=== PATIENT | female | born 1945 | race Caucasian/White ===

== ENCOUNTER 2016-09-17 06:46 | Day surgery (SDC) | payer MEDICARE, OTHER ==
[~2016-09-17] VITALS: Ht 165.1 cm; Wt 52.2 kg
[2016-09-17] VITALS (7 sets, daily range): BP systolic 119–159; BP diastolic 43–58; PULSE 52–63; RESP 13–17; O2SAT 100
[~2016-09-17 06:46] MED LIST: ACET325T51 PO; CeFAZolin 2 Gm/50 mL D5W IV Premix IV ONE
[2016-09-17] MEDS ORDERED: Propofol 10,000 mCg/mL 20 mL Inj ONE (06:47)
[2016-09-17] MEDS ORDERED: Ondansetron 2 mg/mL 2 mL Inj ONE (06:47)
[2016-09-17] MEDS ORDERED: Dexamethasone 4 mg/mL Inj ONE (06:47)
[2016-09-17] MEDS ORDERED: fentaNYL-PF 50 mCg/mL 2 mL Inj ONE (06:47)
[2016-09-17] MEDS: Lactated Ringer's 1,000 ML IV SCH ×3 (07:22→10:01)
[2016-09-17] MEDS ORDERED: Lactated Ringer's 1,000 ML IV SCH (08:36)
[2016-09-17] MEDS ORDERED: Lactated Ringer's 500 ML IV PRN (08:36)
--- NOTE | 2016-09-17 08:36 | PCM.HPANE ---
Patient Data Surgeon Admitting Provider: Attending Provider:Vignesh Mcdonald MD Primary Care Physician:Billy Other Provider: Reason for Visit Pancreatic Cancer Ht/WT & BMI Height (Feet): 5 Height (Inches): 5 Weight (Kilograms): 52.2 Body Mass Index 19.00 Allergies Coded Allergies: No Known Allergies (Unverified , 09/03/16) Past Anesthesia History Anesthesia History: Denies:: Abnormal Airway, Anesthesia Reactions, Difficult Intubation, Fam Anesthesia Reaction Diabetes History Hx Diabetes?: No MRSA MRSA: No Medications Hypertension Medication: No Home Meds Incl Beta Hakan: No Reported Medications Acetaminophen 325 Mg [id number] Mg PO Q4H PRN For Pain Ref 0 09/15/16 History History of ENT Problems?: No HEENT History: Denies:: Abnormal Airway Cataracts Difficult Intubation Dysphagia Glaucoma Hearing Problem Sinus Problem TMJ Denture Type: Full- Upper Hx of Heart Problems?: Yes Cardiovascular History: Positive for:: Heart Murmur (slight murmur since childhood) Hypertension (No longer on meds) Denies:: AICD Pacemaker Peripheral Vascular Hx of Respiratory Problem?: No Respiratory History: Denies:: Asthma COPD Emphysema Oxygen Administration Pneumonia Tuberculosis Use of C-PAP Machine Use of Inhalers / NEBS Hx Neurologic Problems?: No Neurological History: Denies:: Alzheimer's Disease CVA Dizziness Headaches Multiple Sclerosis Parkinson's Disease Seizures Hx of GI Problems?: Yes Gastrointestinal History: Denies:: Gastroesphageal Reflux Heartburn Liver Disease Other GI Pertinent History: pancreatic cancer current admission problem, pt has had EUS/ERCP Aug 2016 at with pancreatic duct stent placed. Ca has been determined to be unresectable Hx of Problems?: No Genitourinary History: Denies:: Kidney Stones Urinary Tract Infection Female Hx: Denies:: Currently (hysterectomy) Problems with Breasts? Skin History: Denies:: History Skin Disorders? Pressure Ulcers Hx Musculoskeletal Problems?: No Musculoskeletal History: Denies:: Back Injury Degenerative Joint Fibromyalgia Joint Replacement Musculoskeletal Trauma Myasthenia Gravis Osteoarthritis Hx of Psycho/Social Problems?: No Psycho Social History: Denies:: Anxiety Hx Depression Hx Surgeries?: Yes Hx Any Other Health Problems?: Yes Other History: Positive for:: Cancer (pancreatic current problem) Denies:: Endocrine Disease Hospitalization Thyroid Disease History Blood Transfusions: Positive for:: Accept Blood Products? Denies:: Blood Transfusions Hx Diabetes: No Hx Alcohol Use: NoAlcoholic Drinks Per Day: rareHx Substance Use: NoHave You Smoked inLast 12 mo: No Stop/Bang S-Snoring: Do You Snore Loudly: No T-Tired: feel tired, fatigued: No O-Obsered: Observed not breath: No P-Blood Pressure: treated: No B- Body Mass Index > 35 kg/m2: No A- Age over 50: Yes N- Neck Large Circumference: No G- Gender Male: No NEGRITO Total Score: 1 NEGRITO Risk Assessment: Low Risk, <3 Yes Risk Assessment Category Category 1A: Patient has history of documented sleep apnea, and HAS NOT received any narcotic, sedative or anesthesia administration during this stay. Category 1B: Patient has history of documented sleep apnea, and HAS received any narcotic , sedative or anesthesia administration during this stay Category 2: Patient has SUSPECTED Obstructive Sleep Apnea, and HAS received any narcotic , sedative or anesthesia administration during this stay. Category 3: Patient has SUSPECTED Obstructive Sleep Apnea and HAS NOT received narcotic, sedative or anesthesia administration during this stay. Category 4: Outpatient in Procedural Areas with known sleep apnea or who screen positive for High Risk via the STOP/BANG questionnaire. Exam Exam Vital Signs Vital Signs Date Time Temp Pulse Resp B/P Pulse Ox O2 Delivery O2 Flow Rate FiO2 09/17/16 07:05 36.3 52 16 159/58 100 Room Air General Appearance: Alert, Oriented X3, Cooperative, No Acute Distress HEENT/AIRWAY: MP 2, Other (upper dentures) Lungs: Clear to Auscultation, Normal Air Movement Heart: Exam Unremarkable, Regular Rate/Rhythm, No Murmurs/Rubs/Gallops Meds/Labs/Diagnostics Admission Meds Current Medications Lactated Ringer's (Lr) 1,000 ml @ 120 mls/hr Q8H20M IV Last administered on t 07:22; Start 09/17/16 at 05:00; Stop 09/17/16 at 13:19 Plan Impression Patient chart reviewed, patient interviewed and anesthestic plan with risks, benefits, and alternatives discussed, and informed consent obtained. NPO Status: mn ASA Physical Status: ASA3 Severe Disease Anesthetic Plan: GA (patient prefers) Bene/Risks/Altern/Consents: Yes HP Complete Prior to Induction: Yes Albert Winston MD Sep 17, 2016 07:31
[2016-09-17] MEDS ORDERED: MetoCLOpramide 5 mg/mL 2 mL Inj IVPUSH PRN (08:40)
[2016-09-17] MEDS ORDERED: Ondansetron 2 mg/mL 2 mL Inj IVPUSH PRN (08:40)
[2016-09-17] MEDS ORDERED: Labetalol 5 mg/mL 4 mL Inj IV PRN (08:40)
[2016-09-17] MEDS ORDERED: EPHEDrine Sulfate 50 mg/mL Inj IVPUSH PRN (08:40)
[2016-09-17] MEDS ORDERED: HYDROmorphone 1 mg/mL Inj IVPUSH PRN (08:40)
[2016-09-17] MEDS ORDERED: Atropine 0.4 mg/mL Inj IVPUSH PRN (08:40)
[2016-09-17] MEDS ORDERED: hydrALAZINE 20 mg/mL Inj IVPUSH PRN (08:40)
[2016-09-17] MEDS ORDERED: Phenylephrine 10,000 mCg/mL Inj IVPUSH PRN (08:40)
[2016-09-17] MEDS ORDERED: fentaNYL-PF 50 mCg/mL 2 mL Inj IVPUSH PRN (08:40)
[2016-09-17] MEDS ORDERED: HepLOK Flush 100 unit/mL 5 mL Inj IVFLUSH ONE ×2 (09:00)
[2016-09-17] MEDS ORDERED: Bupivacaine-MPF 0.5% W/EPI 30 mL Inj INFILTRATE ONE (09:00)
[2016-09-17] MEDS ORDERED: HYDROcodone-APAP 5-325 mg Tablet PO PRN (09:55)
--- NOTE | 2016-09-17 10:02 | PCM.ANEP2 ---
Post Anesthesia Evaluation ASA/CMS Post Anesthesia VS in Patient's Normal Range?: Yes Resp Stable; Airway Patent?: Yes CV Function & Hydration Stable: Yes Mental Status Recovered?: Yes Pain control Satisfactory?: Yes N/V Control Satisfactory?: Yes Albert Winston MD Sep 17, 2016 10:02
--- NOTE | 2016-09-17 10:02 | PCM.ANEP1 ---
Post Anesthesia Phase 1 PACU Phase 1 Assessment Vital Signs Vital Signs Date Time Temp Pulse Resp B/P Pulse Ox O2 Delivery O2 Flow Rate FiO2 09/17/16 10:00 63 13 119/48 100 Room Air 09/17/16 09:51 61 17 121/43 100 Nasal Cannula 2 09/17/16 09:45 63 14 119/46 100 Nasal Cannula 2 09/17/16 09:40 36.7 60 15 120/48 100 Nasal Cannula 2 09/17/16 07:05 36.3 52 16 159/58 100 Room Air Anesthetic Administered: GA Level of Alertness: Sleepy, easy to arouse GORDON's with Equal Strength: Yes Pain: No Nausea or Vomiting: No Oxygen Delivery: Nasal Cannula Lungs: Clear to Auscultation, Normal Air Movement Albert Winston MD Sep 17, 2016 10:02
--- NOTE | 2016-09-17 10:10 | OP ---
[address] [address] OPERATIVE REPORT PATIENT: RUTH GOLDEN : 1945 MR#: [id number] ADMIT: 09/17/2016 JOB ID: [id number] DATE OF SURGERY: 09/17/2016 ANESTHESIA: General. PREOPERATIVE DIAGNOSIS(ES): Metastatic pancreatic cancer. POSTOPERATIVE DIAGNOSIS(ES): Metastatic pancreatic cancer. OPERATIVE PROCEDURE: Insertion of left subclavian vein Port-A-Cath using fluoroscopy with interpretation. SURGEON: Vignesh Mcdonald MD NEUROSURGICAL NURSE: None. COMPLICATIONS: None. ESTIMATED BLOOD LOSS: Minimal. CONDITION: Satisfactory. FINDINGS: A low-profile PowerPort was inserted into the left subclavian vein without complication. INDICATION/SIGNIFICANT HISTORY: The patient is 70-year-old woman with a recent diagnosis of locally unresectable pancreatic cancer, scheduled to begin chemotherapy tomorrow. OPERATIVE TECHNIQUE: The patient was taken to the operating room and placed in supine position. General anesthesia was administered. Perioperative antibiotics were given. The neck and chest were prepped and draped in standard surgical fashion, and a procedure pause was performed. The left subclavian vein was accessed with a 2nd pause of the finder needle and a wire inserted. Position was confirmed using fluoroscopy. A subcutaneous pocket was then made in the left anterior chest wall, and the low-profile port was secured in place using three 2-0 Prolene sutures. The catheter was tunneled up to the wire exit point and inserted into the vein using Seldinger technique under fluoroscopic visualization. Good final position was confirmed with fluoroscopy. The port flushed and aspirated nicely. This was locked with heparin. The skin was then closed using 3-0 Vicryl deep dermal followed by a running 4-0 Monocryl. Dermabond was applied. The entire procedure was well tolerated without complication.
--- NOTE | 2016-09-17 10:30 | DRSVH ---
PROCEDURE: X-RAY CHEST ONE VIEW, PORTABLE ([id number]) INDICATIONS: port TECHNIQUE: One view of the chest was acquired. COMPARISON: [facility], CT, CT CHEST ABD PELVIS W CON, 09/16/2016, 11:04. FINDINGS: Surgical changes and devices: Left chest Port-A-Cath noted. Tip of Port-A-Cath projects to the mid SV C. Lungs and pleura: No pleural effusions or pneumothorax. Lungs are clear. Calcified granuloma in the right lung base is stable compared to the prior CT scan. Mediastinum: Mediastinal contours appear normal. Heart size is normal. Bones and chest wall: No suspicious bony lesions. Overlying soft tissues appear unremarkable. IMPRESSION: Status post placement of left chest Port-A-Cath. Dictated by: Aspen Ambrosio MD, PhD on 09/17/2016 at 10:28 Approved by: Aspen Ambrosio MD, PhD on 09/17/2016 at 10:28
[2016-10-29] MEDS ORDERED: PROC-4 PO (14:39)
[2016-10-29] MEDS ORDERED: ONDA8TAB7 PO (14:39)
[2016-11-05] MEDS ORDERED: FURO-129 PO (16:44)
[2016-11-20] MEDS ORDERED: SPIR50TA2 PO (08:44)
[2016-11-20] MEDS ORDERED: OXYC1TAB24 PO (08:46)
[2016-11-20] MEDS ORDERED: HYDR-4003 PO (08:46)
[2016-12-04] MEDS ORDERED: [UNRECOGNIZED DRUG - CODE] MM (08:34)
[2016-12-14] MEDS ORDERED: RIVA15TA PO (15:44)
[2016-12-21] MEDS ORDERED: CEPH-511 PO (15:26)
[2016-12-21] MEDS ORDERED: bumex PO (15:26)
== END 2016-09-17 23:59 | disposition home or self-care (01) ==
LOC: SAS 06:46
PROVIDERS: ATTEND General Practice
DX: C25.0 Malignant neoplasm of head of pancreas (principal); I10 Essential (primary) hypertension
CPT/HCPCS: 36561; 71010; 77001; C1788; J0690; J1100; J1642; J2405; J7120